=== PATIENT | female | born 1970 | race Caucasian/White ===

== ENCOUNTER 2024-04-26 08:04 | Emergency (ER) | payer OTHER ==
[2024-04-26] MEDS ORDERED: NA CHLORIDE 0.9% 1,000 ML ONE (08:44)
[2024-04-26] MEDS ORDERED: KETOROLAC 30 MG/ML INJ ONE (08:44)
[2024-04-26] MEDS ORDERED: ONDANSETRON 4 MG/2 ML VIAL ONE (08:44)
[2024-04-26 08:58] LABS: Absolute Basophils 0.1 K/uL (0-0.5); Absolute Lymphocytes (CBC) 1.2 K/uL (0.7-4.9); Absolute Monocytes 1.4 K/uL (0.1-1.3); Basophils % 0.7 % (0-1.3); Eosinophils % 0.5 % (0-4.4); Hematocrit 42.2 % (36.0-45.0); Hemoglobin 14.4 g/dL (12.0-15.0); Lymphocytes % 15.8 % (15.3-44.8); MCH 33.1 pg (27.0-35.0); MCHC 34.2 g/dL (32.0-36.0); MCV 96.8 fL (80-100); MPV 7.7 fL (7.6-11.3); Monocytes % 18.4 % (3.3-12.3); Neutrophils % 64.6 % (41.7-73.7); Nucleated Red Blood Cells % 0.1 % (0-0); Platelets 324 thou/uL (152-406); RBC Red Blood Cell Count 4.36 M/uL (3.86-4.86); Red Cell Distribution Width 13.4 % (12.1-15.2)
[2024-04-26 09:11] LABS: Albumin 3.1 g/dL (3.4-5.0); Albumin/Globulin Ratio 0.8 (1.1-1.8); Anion Gap 13.4 mEq/L (5.0-15.0); Bilirubin Total 0.3 mg/dL (0.2-1.0); Globulin 4.1 g/dL (2.3-3.5); Potassium 3.4 mEq/L (3.5-5.1); Protein, Total 7.2 g/dL (6.4-8.2)
--- NOTE | 2024-04-26 10:04 | ER ---
Nurse's Notes [facility] Name: Josseline Mccarty Age: 54 yrs Sex: Female : 1970 Arrival Date: 04/26/2024 Time: 08:04 Bed 4 Private MD: Diagnosis: Diarrhea, unspecified Presentation: 04/26 08:25 Chief complaint: Patient states: abd pain since Wednesday , not eating since Wednesday , iw yesterday I had bloody stool and went to [facility] ER, they just told me it was diarrhea and sent me home, was told to take Imodium and drink fluids. Coronavirus screen: At this time, the client does not indicate any symptoms associated with coronavirus-19. Ebola Screen: No symptoms or risks identified at this time. Initial Sepsis Screen: Does the patient meet any 2 criteria? No. Patient's initial sepsis screen is negative. Does the patient have a suspected source of infection? No. Patient's initial sepsis screen is negative. Risk Assessment: Do you want to hurt yourself or someone else? Patient reports no desire to harm self or others. Onset of symptoms was April 22, 2024. 08:25 Method Of Arrival: Ambulatory iw 08:25 Acuity: WONG 3 iw Historical: - Allergies: 08:28 Morphine; iw 08:28 Codeine; iw - Home Meds: 08:28 None [Active]; iw - PMHx: 08:28 None; iw - PSHx: 08:28 Exploratory laparotomy; section; partial hysterectomy; left tib/fib; iw - Immunization history:: Adult Immunizations not up to date. - Infectious Disease History:: Denies. - Social history:: Smoking status: Patient reports the use of cigarette tobacco products, Reported history of juuling and/or vaping. Screenin:45 [facility] ED Fall Risk Assessment (Adult) History of falling in the last 3 months, ld1 including since admission No falls in past 3 months (0 pts) Confusion or Disorientation No (0 pts) Intoxicated or Sedated No (0 pts) Impaired Gait No (0 pts) Mobility Assist Device Used No (0 pt) Altered Elimination No (0 pt) Score/Fall Risk Level 0 - 2 = Low Risk Oriented to surroundings, Hourly rounding (assess needs \T\ fall precautionary measures) done. Abuse screen: Denies threats or abuse. Denies injuries from another. Nutritional screening: No deficits noted. Tuberculosis screening: No symptoms or risk factors identified. Assessment: 09:45 General: Appears in no apparent distress. comfortable, Behavior is calm, cooperative, ld1 appropriate for age. Pain: Complains of pain in abdomen Pain does not radiate. Pain currently is 8 out of 10 on a pain scale. Quality of pain is described as throbbing, Pain began suddenly, Is continuous. Neuro: Level of Consciousness is awake, alert, obeys commands, Oriented to person, place, time, situation, Appropriate for age. Cardiovascular: Capillary refill < 3 seconds Patient's skin is warm and dry. Respiratory: Airway is patent Respiratory effort is even, unlabored. GI: Abdomen is round non-distended, Reports lower abdominal pain, upper abdominal pain, bloody stool, nausea. 09:45 : No signs and/or symptoms were reported regarding the genitourinary system. EENT: No ld1 signs and/or symptoms were reported regarding the EENT system. Derm: No signs and/or symptoms reported regarding the dermatologic system. Musculoskeletal: No signs and/or symptoms reported regarding the musculoskeletal system. 10:52 Reassessment: Patient appears in no apparent distress at this time. No changes from ld1 previously documented assessment. Patient and/or family updated on plan of care and expected duration. Pain level reassessed. Vital Signs: 08:25 BP 146 / 94; Pulse 118; Resp 19; Temp 97.4; Pulse Ox 98% ; Weight 71.67 kg; Height 5 iw ft. 4 in. ; Pain 3/10; 09:41 BP 139 / 94; Pulse 98; ec2 10:44 BP 127 / 88; Pulse 86; Resp 18; Pulse Ox 99% on R/A; ld1 08:25 Body Mass Index 27.12 (71.67 kg, 162.56 cm) iw 08:25 Pain Scale: Adult iw ED Course: 08:09 Patient arrived in ED. al6 08:11 Nick Phillips MD is Attending Physician. ec2 08:28 Triage completed. iw 08:29 Arm band placed on. iw 08:32 Antonia Cruz RN is Primary Nurse. ld1 08:49 Inserted saline lock: 20 gauge in left antecubital area, using aseptic technique. Blood ld1 collected. Flushed with 10 mL NS. 09:45 Patient has correct armband on for positive identification. Placed in gown. Bed in low ld1 position. Call light in reach. Side rails up X2. surveillance monitor on. Pulse ox on. NIBP on. Door closed. Noise minimized. Warm blanket given. 09:45 No provider procedures requiring assistance completed. ld1 10:52 IV discontinued, intact, bleeding controlled, No redness/swelling at site. ld1 Administered Medications: 08:48 Drug: Ketorolac IVP 15 mg IVP once Route: IVP; Site: left antecubital; ld1 10:52 Follow up: Response: No adverse reaction ld1 08:49 Drug: NS 0.9% IV 1000 ml IV at 1 bolus Per protocol; to be given as a bolus over 60 ld1 minutes Route: IV; Rate: 1 bolus; Site: left antecubital; 10:53 Follow up: Response: No adverse reaction; IV Status: Infusion continued; IV Intake: ld1 1000ml 08:49 Drug: Ondansetron IVP 4 mg IVP once; over 2 minutes Route: IVP; Site: left antecubital; ld1 10:53 Follow up: Response: No adverse reaction ld1 Medication: 09:45 VIS not applicable for this client. ld1 Intake: 10:53 IV: 1000ml; Total: 1000ml. ld1 Outcome: 10:03 Discharge ordered by . ec2 10:55 Discharged to home ambulatory, ld1 10:55 Condition: stable 10:55 Discharge instructions given to patient, Instructed on discharge instructions, follow up and referral plans. medication usage, Demonstrated understanding of instructions, follow-up care, medications, Prescriptions given X 3, 10:55 Patient left the ED. ld1 Signatures: Sophia Sheridan RN RN iw Antonia Cruz RN RN ld1 Nick Phillips MD MD ec2 Rosa Rabago al6
--- NOTE | 2024-04-26 10:04 | EDPHYS ---
Physician Documentation [facility] Name: Josseline Mccarty Age: 54 yrs Sex: Female : 1970 Arrival Date: 04/26/2024 Time: 08:04 Bed 4 Private MD: ED Physician Nick Phillips HPI: 04/26 08:33 This 54 yrs old Female presents to ER via Ambulatory with complaints of ec2 Nausea, Abdominal Pain, Bloody Stools. 08:33 Patient arrives today for evaluation of persistent diarrheal symptoms. Was recently ec2 seen yesterday and had a CT imaging of the abdomen pelvis as well as lab work and ultimately was discharged home with recommendation for p.o. intake. No urinary complaints.. Historical: - Allergies: 08:28 Morphine; iw 08:28 Codeine; iw - Home Meds: 08:28 None [Active]; iw - PMHx: 08:28 None; iw - PSHx: 08:28 Exploratory laparotomy; section; partial hysterectomy; left tib/fib; iw - Immunization history:: Adult Immunizations not up to date. - Infectious Disease History:: Denies. - Social history:: Smoking status: Patient reports the use of cigarette tobacco products, Reported history of juuling and/or vaping. ROS: 08:33 Constitutional: as per hpi ec2 Exam: 08:33 Constitutional: GEN: NAD Head: atraumatic Eyes: EOMI Ears: External ears are ec2 normal. CV: regular rate LUNGS: no respiratory distress ABD: non-distended SKIN: no evidence of rashes MSK: no evidence of trauma Vital Signs: 08:25 BP 146 / 94; Pulse 118; Resp 19; Temp 97.4; Pulse Ox 98% ; Weight 71.67 kg; Height 5 iw ft. 4 in. ; Pain 3/10; 09:41 BP 139 / 94; Pulse 98; ec2 10:44 BP 127 / 88; Pulse 86; Resp 18; Pulse Ox 99% on R/A; ld1 08:25 Body Mass Index 27.12 (71.67 kg, 162.56 cm) iw 08:25 Pain Scale: Adult iw MDM: 08:11 Medical Screening Exam initiated ec2 08:33 Data reviewed: vital signs, nurses notes. ED course: Patient arrives today for ec2 evaluation of diarrhea. Examination is unrevealing. Will obtain lab work, urine studies. Suspect gastroenteritis. Will give the patient fluid as well while we evaluate dehydration.. 10:02 ED course: Lab work is remarkable for slight hypokalemia, lipase is minimally elevated, ec2 not at threshold to indicate pancreatitis, patient additionally also recently had CT imaging, do not feel this is warranted to repeat at this time. Will start the patient empiric antibiotic therapy for infectious diarrhea. Will discharge home. Turn precautions given.. 04/26 08:29 Order name: CBC with Diff; Complete Time: 09:30 ec2 04/26 08:29 Order name: CMP; Complete Time: 09:30 ec2 04/26 08:29 Order name: Lipase; Complete Time: 09:30 ec2 04/26 08:33 Order name: Fecal Leukocyte Stain ec2 04/26 08:33 Order name: Stool Culture ec2 04/26 08:29 Order name: IV Saline Lock; Complete Time: 08:49 ec2 04/26 08:29 Order name: Labs collected and sent; Complete Time: 08:49 ec2 Administered Medications: 08:48 Drug: Ketorolac IVP 15 mg IVP once Route: IVP; Site: left antecubital; ld1 10:52 Follow up: Response: No adverse reaction ld1 08:49 Drug: NS 0.9% IV 1000 ml IV at 1 bolus Per protocol; to be given as a bolus over 60 ld1 minutes Route: IV; Rate: 1 bolus; Site: left antecubital; 10:53 Follow up: Response: No adverse reaction; IV Status: Infusion continued; IV Intake: ld1 1000ml 08:49 Drug: Ondansetron IVP 4 mg IVP once; over 2 minutes Route: IVP; Site: left antecubital; ld1 10:53 Follow up: Response: No adverse reaction ld1 Disposition Summary: 04/26/24 10:03 Discharge Ordered Notes: Location: Home ec2 Condition: Stable ec2 Diagnosis - Diarrhea, unspecified ec2 Followup: ec2 - With: Private Physician - When: - Reason: Re-evaluation by your physician Discharge Instructions: - Discharge Summary Sheet ec2 - Diarrhea, Adult ec2 Forms: - Medication Reconciliation Form ec2 - Antibiotic Education ec2 - Prescription Opioid Use ec2 - Patient Portal Instructions ec2 - Leadership Thank You Letter ec2 Prescriptions: - ketorolac 10 mg Oral tablet - take 1 tablet ORAL route 3 times per day for 5 days; 15 tablet; Refills: 0, ec2 Product Selection Permitted - Reglan 10 mg Oral Tablet - take 1 tablet ORAL route every 6 hours take 30 minutes before meals and at ec2 bedtime; 20 tablet; Refills: 0, Product Selection Permitted - Cipro 500 mg Oral Tablet - take 1 tablet ORAL route every 12 hours for 7 days; 14 tablet; Refills: 0, ec2 Product Selection Permitted Signatures: Dispatcher [employer] Sophia Torres, DIGNA SAWYER iw Antonia Cruz RN RN ld1 Nick Phillips MD MD ec2 Corrections: (The following items were deleted from the chart) 08: 08:29 CBC+H.LAB.BRZ ordered. EDMS EDMS 08:29 08:29 COMPREHENSIVE METABOLIC PANEL+C.LAB.BRZ ordered. EDMS EDMS 08:29 08:29 LIPASE+C.LAB.BRZ ordered. EDMS EDMS
[2024-04-26 11:18] VITALS: TEMP 97.4
[2024-04-26 11:20] VITALS: BP 127/88; O2SAT 99
== END 2024-04-26 10:55 | disposition home or self-care (01) ==
LOC: ER 08:04
DX: R19.7 Diarrhea, unspecified (principal); Z72.0 Tobacco use
CPT/HCPCS: 87045; 85025; 36415; 89055; 87046; 83690; 80053; J2405; J7030